=== PATIENT | female | born 1995 | race Asian ===

== ENCOUNTER 2021-08-01 05:18 | Emergency (ER) | payer BC, MEDICARE ==
[~2021-08-01] VITALS: Ht 162.6 cm; Wt 66.7 kg
[2021-08-01 05:21] VITALS: BP_SYST 114
--- NOTE | 2021-08-01 05:27 | NUR ---
25 YR OLD AOX4, AMBULATORY FEMALE WITH COMPLAINT OF ABDOMINAL PAIN, HEMMOROIDS FLARE UP WITH GASSY FEELING. PT DENIES ANY NAUSEA OR VOMITING. PT REPORTS HAVING A CRAMPING 10/10 PAIN FOR ABOUT 8 HOURS. PT WILL BE PLACED IN ROOM 8
[2021-08-01] MEDS ORDERED: ONDANSETRON HCL 4 MG/2 ML VIAL IVP ONE (05:45)
[2021-08-01] MEDS ORDERED: MORPHINE 4 MG INJ. 4 MG/ML VIAL IVP ONE (05:45)
[2021-08-01] MEDS ORDERED: NACL 0.9% 1,000 ML IV ONE (05:45)
[2021-08-01] MEDS ORDERED: MORPHINE 4 MG INJ. 4 MG/ML VIAL ONE (05:56)
[2021-08-01 06:00] LABS: BILIRUBIN,URINE NEGATIVE (NEGATIVE); BLOOD, URINE 1+ (NEGATIVE); CLARITY/URINE SL CLOUDY (CLEAR); COLOR,URINE YELLOW (YELLOW); GLUCOSE,URINE NEGATIVE (NEGATIVE); KETONES,URINE NEGATIVE (NEGATIVE); LEUKOCYTE ESTERASE ,URINE 1+ (NEGATIVE); NITRITE, URINE NEGATIVE (NEGATIVE); PROTEIN URINE NEGATIVE (NEGATIVE); UROBILINOGEN,URINE 0.2 (0.2-1.0)
--- NOTE | 2021-08-01 06:05 | NUR ---
CONNECTED TO BEDSIDE MONITOR VS TAKEN AND RECORDED. S/B DR CHAVES W/ORDERS SEE CPOE
--- NOTE | 2021-08-01 06:06 | NUR ---
IV START AT RT AC,BLOOD COLLECTED FOR CBC,CMP,LIPASE AND SENT TO LAB, MEDICATED FOR PAIN P/S 11/16 IVF INFUSING 1LN/S BOLUS.
[2021-08-01 06:30] LABS: CALCIUM 9.5 mg/dL (8.4-11.0); CREATININE 0.8 mg/dL (0.55-1.30); HEMATOCRIT 37.7 % (36-48); HEMOGLOBIN 12.6 g/dL (12.0-16.0); MEAN CORPUSCULAR HEMOGLOBIN 29 pg (27-31); MEAN CORPUSCULAR HGB CONC 34 % (32-36); MEAN CORPUSCULAR VOLUME 86 fL (79.0-98.0); PLATELET COUNT (AUTO) 349 K/uL (130-430); POTASSIUM 3.9 mmol/L (3.5-5.1); RED BLOOD CELL COUNT(AUTO) 4.39 MIL/uL (4.2-6.2); RED CELL DISTRIBUTION WIDTH 12.7 % (9.0-15.0); WHITE BLOOD COUNT (AUTO) 11.2 K/uL (4.8-10.8)
[2021-08-01 06:35] LABS: ALBUMIN 3.2 g/dL (3.4-4.8); TOTAL BILIRUBIN 0.1 mg/dL (0.0-1.0)
[2021-08-01 06:37] LABS: BACTERIA,URINE MODERATE /HPF (None Seen)
--- NOTE | 2021-08-01 06:45 | NUR ---
0645 WENT TO RADIOLOGY FOR U/S ABDOMEN 0650 AWAITING FOR RESULTS. PAIN 2/10 FEELS MORE COMFORTABLE.
--- NOTE | 2021-08-01 07:05 | NUR ---
REPORT RECEIVED FROM LORENA WARREN FOR CONTINUING CARE
[2021-08-01] MEDS ORDERED: MAGN296S8 PO (07:07)
[2021-08-01] MEDS ORDERED: TRAM50TA PO (07:07)
[2021-08-01] MEDS ORDERED: HYDR30CR79 TP (07:28)
[2021-08-01] MEDS ORDERED: KETOROLAC TROMETHAMINE 30 MG VIAL IVP ONE (07:30)
--- NOTE | 2021-08-01 07:37 | NUR ---
Patient given written and verbal discharge instructions and verbalizes understanding. ER MD discussed with patient the results and treatment provided. Patient in stable condition. ID arm band removed. IV catheter removed intact and dressing applied, no active bleeding. Rx of MAG CITRATE, TRAMADOL, HYDROCORDISONE CREAM given. Patient educated on pain management and to follow up with PMD. Pain Scale 0/10. Opportunity for questions provided and answered. Medication side effect fact sheet provided.
[2021-08-01 07:38] VITALS: BP_SYST 115
[2021-08-01 08:22] LABS: ATYPICAL LYMPHOCYTES % 13 % (0-0); BAND % (MANUAL) 2 % (0-6); BASOPHILS % (MANUAL) 0 % (0-2); EOSINOPHILS % (MANUAL) 3 % (0-7); LYMPHOCYTES % (MANUAL) 19 % (20-46); MONOCYTES % (MANUAL) 15 % (0-11)
== END 2021-08-01 07:38 | disposition home or self-care (01) ==
LOC: SED 05:18
DX: R10.13 Epigastric pain (principal); J45.909 Unspecified asthma, uncomplicated; Z79.899 Other long term (current) drug therapy
CPT/HCPCS: 36415; 76705; 80053; 81000; 82150; 83690; 85007; 85027; 87086; 96361; 96374; 96375; 99284; J1885; J2270; J2405; J7030

== ENCOUNTER 2022-05-11 14:01 | Emergency (ER) | payer BC ==
[~2022-05-11] VITALS: Ht 162.6 cm; Wt 63.5 kg
[~2022-05-11 14:01] MED LIST: HYDR30CR79 TP; MAGN296S8 PO; TRAM50TA PO
[2022-05-11 14:15] VITALS: BP_SYST 100
--- NOTE | 2022-05-11 15:02 | NUR ---
Patient triaged and placed in waiting room. VSS and patient appears in no acute distress at this time. Accompanied by SELF, awaiting available bed, and MD notified of need for MSE.
--- NOTE | 2022-05-11 15:05 | NUR ---
SEEN AND EVALUATED BY DR CASTRO IN TRIAGE ROOM
--- NOTE | 2022-05-11 15:20 | NUR ---
PT STATES THAT WHILE SHE WAS IN [place] ON VACATION, SHE CAME DOWN WITH SORE THROAT, COUGH, CONGESTION, HEADACHES. PT STATES SHE HAS BEEN SICK FOR 6 DAYS AND NOT GETTING BETTER.
[2022-05-11] MEDS ORDERED: PRED20TA PO (15:56)
--- NOTE | 2022-05-11 16:11 | NUR ---
Note undone in EDM - 05/11/22 at 1616 by WILLIS Patient given written and verbal discharge instructions and verbalizes understanding. ER discussed with patient the results and treatment provided. Patient in stable condition. ID arm band removed. Rx of PREDNISONE given. Patient educated on pain management and to follow up with PMD. Pain Scale 0/10. Opportunity for questions provided and answered. Medication side effect fact sheet provided.
--- NOTE | 2022-05-11 16:16 | NUR ---
Patient given written and verbal discharge instructions and verbalizes understanding. ER MD discussed with patient the results and treatment provided. Patient in stable condition. ID arm band removed. Rx of PREDNISONE given. Patient educated on pain management and to follow up with PMD. Pain Scale 0/10. Opportunity for questions provided and answered. Medication side effect fact sheet provided.
== END 2022-05-11 16:16 | disposition home or self-care (01) ==
LOC: SED 14:01
DX: J45.909 Unspecified asthma, uncomplicated (principal); R05.9 Cough, unspecified; R09.81 Nasal congestion; Z79.899 Other long term (current) drug therapy; Z20.822 Contact with and (suspected) exposure to COVID-19
CPT/HCPCS: 36415; 71045; 99284